=== PATIENT | male | born 1935 | race Two or more races ===

== ENCOUNTER 2023-07-31 16:48 | Emergency (ER) | payer MEDICARE, BC ==
[~2023-07-31] VITALS: Ht 175.3 cm; Wt 56.0 kg
[2023-07-31 18:17] LABS: Basophils # (auto) 0 10 ^3/uL (0-0.2); Basophils % (auto) 0.4 % (0.0-2.0); Eosinophils # (auto) 0.3 10 ^3/uL (0-0.8); Eosinophils % (auto) 2.6 % (0.0-7.0); Hematocrit 40.2 % (41.0-53.0); Hemoglobin 13.3 g/dL (13.5-17.5); Lymphocytes # (auto) 1.4 10 ^3/uL (0.4-5.4); Mean Corpuscular Hemoglobin 29.6 pg (28.0-32.0); Mean Corpuscular Hgb Conc. 33.1 g/dL (32.0-36.0); Mean Corpuscular Volume 89.3 fL (80.0-100.0); Monocytes # (auto) 0.8 10 ^3/uL (0-1.3); Neutrophils # (auto) 7.9 10 ^3/uL (1.6-8.6); Nucleated Red Blood Cells % 0.1 %; Red Cell Distribution Width 15.4 % (11.8-14.3); White Blood Cell 10.4 10^3/uL (4.4-10.8)
[2023-07-31 18:37] LABS: Alanine Aminotransferase 20 U/L (7-40); Alkaline Phosphatase 185 U/L (46-116); Anion Gap 8 (5-15); Aspartate Aminotransferase 21 U/L (13-40); BUN/Creatinine Ratio 22.5 (10.0-20.0); Bilirubin, Total 1.4 mg/dL (0.2-1.0); Blood Urea Nitrogen 20 mg/dL (9-23); Calcium 8.9 mg/dL (8.7-10.4); Carbon Dioxide 25 mmol/L (20-30); Chloride 104 mmol/L (98-107); Glucose 92 mg/dL (74-106); Potassium 4.5 mmol/L (3.5-5.1); Sodium 137 mmol/L (136-145); Total Protein 7.4 g/dL (5.7-8.2)
[2023-07-31 21:20] VITALS: PULSE 61; RESP 18; O2SAT 97
[2023-07-31 21:24] VITALS: BP 119/69; PULSE 61; RESP 18; TEMP 98.2; O2SAT 97
== END 2023-07-31 21:27 | disposition home or self-care (01) ==
LOC: ER 16:48
DX: S70.01XA Contusion of right hip, initial encounter (principal); S09.90XA Unspecified injury of head, initial encounter; Z98.890 Other specified postprocedural states; W18.09XA Striking against other object with subsequent fall, initial encounter; Y93.89 Activity, other specified; Y92.89 Other specified places as the place of occurrence of the external cause; Y99.8 Other external cause status
CPT/HCPCS: 36415; 70450; 71045; 72125; 73080; 73502; 80053; 82962; 83880; 84484; 85025; 93005

== ENCOUNTER 2024-02-18 10:57 | Inpatient (IN) | payer BC, MEDICARE, OTHER ==
[~2024-02-18] VITALS: Ht 177.8 cm; Wt 61.2 kg
[~2024-02-18 10:57] MED LIST: LEFL20TA PO; PRED20TA2 PO
[2024-02-18 11:45] VITALS: PULSE 101; RESP 12; O2SAT 94
[2024-02-18] MEDS: SODIUM CHLORIDE 0.9% 1,000 ML IV ONE ×3 (11:45→11:58)
[2024-02-18] MEDS: PIPERACILLIN-TAZOB 3.375GM 100 ML IV ONE (11:59)
[2024-02-18 12:03] LABS: Basophils # (auto) 0 10 ^3/uL (0-0.2); Eosinophils # (auto) 0.1 10 ^3/uL (0-0.8); Monocytes # (auto) 0.4 10 ^3/uL (0-1.3); Nucleated Red Blood Cells % 0.1 %
[2024-02-18 12:05] LABS: Basophils % (auto) 0.4 % (0.0-2.0); Eosinophils % (auto) 0.6 % (0.0-7.0); Hematocrit 43.9 % (41.0-53.0); Hemoglobin 13.7 g/dL (13.5-17.5); Lymphocytes # (auto) 1.8 10 ^3/uL (0.4-5.4); Lymphocytes % (auto) 20.9 % (10.0-50.0); Mean Corpuscular Hgb Conc. 31.2 g/dL (32.0-36.0); Monocytes % (auto) 4.3 % (0.0-12.0); Neutrophils # (auto) 6.5 10 ^3/uL (1.6-8.6); Neutrophils % (auto) 73.8 % (37.0-80.0); Red Blood Cells 4.72 10^6/uL (4.5-5.90); Red Cell Distribution Width 21.3 % (11.8-14.3); White Blood Cell 8.8 10^3/uL (4.4-10.8)
[2024-02-18 12:20] LABS: INR 1.19 (0.9-1.15); Partial Thromboplastin Time 27.6 SEC (24.5-34.5); Prothrombin Time 12.5 sec (9.3-11.8)
[2024-02-18 12:28] LABS: Alanine Aminotransferase 37 U/L (7-40); Albumin 2.9 g/dL (3.2-4.8); Alkaline Phosphatase 145 U/L (46-116); Anion Gap 8 (5-15); Aspartate Aminotransferase 51 U/L (13-40); BUN/Creatinine Ratio 29.9 (10.0-20.0); Bilirubin, Total 1.1 mg/dL (0.2-1.0); Blood Alcohol < 3.0 mg/dL (<10); Blood Urea Nitrogen 29 mg/dL (9-23); Calcium 8.5 mg/dL (8.5-10.1); Carbon Dioxide 25 mmol/L (20-30); Chloride 117 mmol/L (98-107); Glucose 90 mg/dL (74-106); Potassium 4.4 mmol/L (3.5-5.1); Sodium 150 mmol/L (136-145); Total Protein 5.9 g/dL (5.7-8.2)
[2024-02-18 12:36] LABS: Lactic Acid w/Reflex 2.1 mmol/L (0.4-2.0)
[2024-02-18] MEDS ORDERED: MORPHINE SULFATE INJ 2 MG/ml SYRG IV PRN ×2 (14:15)
[2024-02-18] MEDS ORDERED: DOCUSATE SOD 100 MG CAP PO PRN (14:15)
[2024-02-18] MEDS ORDERED: ACETAMINOPHEN 325 MG TAB PO PRN (14:15)
[2024-02-18] MEDS ORDERED: NITROGLYCERIN 0.4 MG SL TAB SL PRN (14:15)
[2024-02-18] MEDS ORDERED: HYDROcodone-ACET 5/325MG TAB PO PRN (14:15)
[2024-02-18] MEDS ORDERED: ONDANSETRON HCL 4 MG/2 ML VIAL IV PRN (14:15)
[2024-02-18 14:43] LABS: Base Excess 2.5 mmol/L (-2.0-2.0)
[2024-02-18] MEDS: FUROSEMIDE 40 MG/4 ML VIAL IV ONE (14:45)
[2024-02-18 15:16] LABS: Magnesium 2.1 mg/dL (1.6-2.6)
[2024-02-18] MEDS ORDERED: ROSU5TAB24 PO (15:17)
[2024-02-18] MEDS ORDERED: METO25TA93 PO (15:17)
[2024-02-18] MEDS ORDERED: DONE1TAB88 PO (15:17)
[2024-02-18] MEDS ORDERED: LOS25T PO (15:17)
[2024-02-18] MEDS ORDERED: CLOP75TA70 PO (15:17)
[2024-02-18 15:18] LABS: Phosphorus 3.1 mg/dL (2.4-5.1)
[2024-02-18] MEDS: AZITHROMYCIN 500MG/ 250ML 250 ML IV ONE (15:43)
[2024-02-18] MEDS: ALBUMIN 5% 250 ML IV ONE (15:44)
[2024-02-18] MEDS: LINEZOLID 600MG/300ML 300 ML IV SCH (18:00)
[2024-02-18 19:07] LABS: Urine Bacteria None Seen /hpf (None Seen)
[2024-02-18 19:27] LABS: Urine Blood Negative /uL (Negative); Urine Clarity Ex.Turbid (Clear); Urine Color Yellow (Yellow); Urine Mucus FEW (None Seen); Urine Protein, UAD 1+ (Negative); Urine Specific Gravity 1.025 (1.001-1.035); Urine Urobilinogen Normal (Negative); Urine WBC 5 /hpf (0 - 3); Urine pH 5.5 (5.0-9.0)
[2024-02-18] MEDS: CEFEPIME 1GM/ 50ML 50 ML IV SCH (22:33)
[2024-02-18] MEDS: DONEPEZIL HYDROCHLORIDE 5 MG TAB PO SCH (22:33)
[2024-02-18 22:50] VITALS: O2SAT 96
[2024-02-19] VITALS (12 sets, daily range): BP systolic 97–122; BP diastolic 46–79; PULSE 47–99; RESP 14–18; TEMP 95.9–98.3; O2SAT 90–100
[2024-02-19 03:22] LABS: COVID19 ANTIGEN SOFIA FIA NEGATIVE (NEGATIVE)
[2024-02-19 03:24] LABS: Rapid Influenza A Positive (Negative); Rapid Influenza B Positive (Negative)
[2024-02-19 06:27] LABS: Basophils # (auto) 0 10 ^3/uL (0-0.2); Basophils % (auto) 0.4 % (0.0-2.0); Eosinophils # (auto) 0.5 10 ^3/uL (0-0.8); Eosinophils % (auto) 6.3 % (0.0-7.0); Hematocrit 42.5 % (41.0-53.0); Hemoglobin 13.5 g/dL (13.5-17.5); Lymphocytes # (auto) 1.1 10 ^3/uL (0.4-5.4); Lymphocytes % (auto) 12.7 % (10.0-50.0); Mean Corpuscular Hemoglobin 29.2 pg (28.0-32.0); Mean Corpuscular Hgb Conc. 31.8 g/dL (32.0-36.0); Mean Corpuscular Volume 91.9 fL (80.0-100.0); Monocytes # (auto) 0.5 10 ^3/uL (0-1.3); Monocytes % (auto) 5.9 % (0.0-12.0); Neutrophils # (auto) 6.4 10 ^3/uL (1.6-8.6); Neutrophils % (auto) 74.7 % (37.0-80.0); Red Blood Cells 4.63 10^6/uL (4.5-5.90); Red Cell Distribution Width 20.4 % (11.8-14.3); White Blood Cell 8.6 10^3/uL (4.4-10.8)
[2024-02-19 06:29] LABS: Alanine Aminotransferase 30 U/L (7-40); Albumin 2.7 g/dL (3.2-4.8); Alkaline Phosphatase 128 U/L (46-116); Anion Gap 8 (5-15); Aspartate Aminotransferase 33 U/L (13-40); BUN/Creatinine Ratio 30.5 (10.0-20.0); Blood Urea Nitrogen 25 mg/dL (9-23); Calcium 8.2 mg/dL (8.7-10.4); Carbon Dioxide 26 mmol/L (20-30); Chloride 117 mmol/L (98-107); Glucose 131 mg/dL (74-106); Potassium 3.6 mmol/L (3.5-5.1); Sodium 151 mmol/L (136-145); Total Protein 5.9 g/dL (5.7-8.2)
[2024-02-19] MEDS ORDERED: cefTRIAXone 1GM/50ML D5W 50 ML IV SCH (09:00)
[2024-02-19] MEDS: ENOXAPARIN SOD 30 MG/0.3 ML SYRINGE SC SCH (09:33)
[2024-02-19] MEDS: ATORVASTATIN 20 MG TAB PO SCH (09:33)
[2024-02-19] MEDS ORDERED: AZITHROMYCIN 500MG/ 250ML 250 ML IV SCH (10:00)
[2024-02-19] MEDS: PANTOPRAZOLE 40 MG/10 ML VIAL INJ IV SCH (12:21)
[2024-02-19] MEDS: ASPirin 81 mg TAB PO ONE (12:45)
[2024-02-19] MEDS: SOD CHL 0.45% 1,000 ML IV SCH (15:00)
[2024-02-19] MEDS ORDERED: HYDR200T36 PO (15:42)
[2024-02-19] MEDS ORDERED: CLOB0.055 TOP (15:42)
[2024-02-19] MEDS ORDERED: IPRIH INH (15:42)
[2024-02-19] MEDS ORDERED: ALEN70TA74 PO (15:42)
[2024-02-19] MEDS ORDERED: PER60TP EX (15:42)
[2024-02-19] MEDS ORDERED: ISOS1TAB28 PO (15:42)
[2024-02-19] MEDS ORDERED: MUPI2OIN2 TOP (15:42)
[2024-02-19] MEDS ORDERED: TRI05TP TOP (15:42)
[2024-02-19] MEDS: FUROSEMIDE 40 MG/4 ML VIAL IV ONE (16:25)
[2024-02-20] VITALS (11 sets, daily range): BP systolic 102–112; BP diastolic 41–67; PULSE 56–101; RESP 14–20; TEMP 97.5–98.3; O2SAT 93–98
[2024-02-20 09:18] LABS: Basophils # (auto) 0 10 ^3/uL (0-0.2); Basophils % (auto) 0.5 % (0.0-2.0); Eosinophils % (auto) 11.6 % (0.0-7.0); Hematocrit 46.9 % (41.0-53.0); Hemoglobin 14.6 g/dL (13.5-17.5); Lymphocytes # (auto) 1.1 10 ^3/uL (0.4-5.4); Lymphocytes % (auto) 12.3 % (10.0-50.0); Mean Corpuscular Hemoglobin 29.3 pg (28.0-32.0); Mean Corpuscular Hgb Conc. 31.2 g/dL (32.0-36.0); Mean Corpuscular Volume 93.8 fL (80.0-100.0); Monocytes # (auto) 0.4 10 ^3/uL (0-1.3); Monocytes % (auto) 5.1 % (0.0-12.0); Neutrophils # (auto) 6.1 10 ^3/uL (1.6-8.6); Neutrophils % (auto) 70.5 % (37.0-80.0); Nucleated Red Blood Cells % 0.2 %; White Blood Cell 8.7 10^3/uL (4.4-10.8)
[2024-02-20 09:19] LABS: Red Cell Distribution Width 20.5 % (11.8-14.3)
[2024-02-20 09:34] LABS: Alanine Aminotransferase 30 U/L (7-40); Albumin 3.1 g/dL (3.2-4.8); Alkaline Phosphatase 174 U/L (46-116); Anion Gap 12 (5-15); Aspartate Aminotransferase 39 U/L (13-40); BUN/Creatinine Ratio 19.8 (10.0-20.0); Blood Urea Nitrogen 22 mg/dL (9-23); Calcium 8.9 mg/dL (8.5-10.1); Carbon Dioxide 24 mmol/L (20-30); Chloride 117 mmol/L (98-107); Glucose 97 mg/dL (74-106); Magnesium 2.2 mg/dL (1.6-2.6); Potassium 3.7 mmol/L (3.5-5.1); Sodium 153 mmol/L (136-145)
[2024-02-20 09:35] LABS: Bilirubin, Total 0.7 mg/dL (0.2-1.0); Total Protein 6.6 g/dL (5.7-8.2)
[2024-02-20] MEDS: ASPirin 81 mg TAB PO SCH (10:01)
[2024-02-20] MEDS: ALBUTEROL SULF 2.5 MG/0.5ML(0.5%) NEB SOLN NEB PRN (12:22)
[2024-02-20] MEDS: IPRATROPIUM BROM 0.5 MG/2.5ML INH SOL NEB PRN (12:22)
[2024-02-20] MEDS: SOD CHL 0.45% 1,000 ML IV SCH (16:29)
[2024-02-20] MEDS ORDERED: MORPHINE SULFATE 4 MG/ML SYR/VIAL IV PRN ×2 (21:30)
[2024-02-21] VITALS (12 sets, daily range): BP systolic 79–106; BP diastolic 56–72; PULSE 55–118; RESP 14–19; TEMP 97.5–98.7; O2SAT 89–100
[2024-02-21 06:13] LABS: Chloride 118 mmol/L (98-107); Sodium 155 mmol/L (136-145)
[2024-02-21 06:14] LABS: Anion Gap 13 (5-15); Calcium 8.9 mg/dL (8.5-10.1); Carbon Dioxide 24 mmol/L (20-30)
[2024-02-21 06:19] LABS: BUN/Creatinine Ratio 17.9 (10.0-20.0); Blood Urea Nitrogen 26 mg/dL (9-23); Glucose 123 mg/dL (74-106)
[2024-02-21 06:20] LABS: Magnesium 2.5 mg/dL (1.6-2.6)
[2024-02-21] MEDS: D5W 5% 1,000 ML IV SCH (14:02)
[2024-02-21] MEDS: MEROPENEM 1GM IVPB 50 ML IV ONE (14:02)
[2024-02-21] MEDS: MEROPENEM 1GM IVPB 50 ML IV SCH (21:48)
[2024-02-22] VITALS (12 sets, daily range): BP systolic 98–123; BP diastolic 46–74; PULSE 50–124; RESP 17–21; TEMP 97.2–97.8; O2SAT 91–99
[2024-02-22 06:24] LABS: Basophils # (auto) 0 10 ^3/uL (0-0.2); Basophils % (auto) 0.3 % (0.0-2.0); Eosinophils # (auto) 0.7 10 ^3/uL (0-0.8); Eosinophils % (auto) 5.6 % (0.0-7.0); Hematocrit 43.6 % (41.0-53.0); Hemoglobin 13.5 g/dL (13.5-17.5); Lymphocytes # (auto) 0.7 10 ^3/uL (0.4-5.4); Lymphocytes % (auto) 5.3 % (10.0-50.0); Mean Corpuscular Hemoglobin 28.6 pg (28.0-32.0); Mean Corpuscular Volume 92.3 fL (80.0-100.0); Monocytes # (auto) 0.4 10 ^3/uL (0-1.3); Monocytes % (auto) 2.9 % (0.0-12.0); Neutrophils # (auto) 10.7 10 ^3/uL (1.6-8.6); Neutrophils % (auto) 85.9 % (37.0-80.0); Nucleated Red Blood Cells % 0.1 %; Red Blood Cells 4.72 10^6/uL (4.5-5.90); Red Cell Distribution Width 20.1 % (11.8-14.3); White Blood Cell 12.4 10^3/uL (4.4-10.8)
[2024-02-22 06:38] LABS: Anion Gap 8 (5-15); Carbon Dioxide 28 mmol/L (20-30); Chloride 118 mmol/L (98-107); Potassium 3.9 mmol/L (3.5-5.1); Sodium 154 mmol/L (136-145)
[2024-02-22 06:39] LABS: Calcium 8.5 mg/dL (8.7-10.4)
[2024-02-22 06:44] LABS: BUN/Creatinine Ratio 20.5 (10.0-20.0); Blood Urea Nitrogen 33 mg/dL (9-23); Glucose 144 mg/dL (74-106)
[2024-02-22 06:45] LABS: Magnesium 2.3 mg/dL (1.6-2.6)
[2024-02-22 07:51] LABS: Platelet Estimate Adequate
[2024-02-22 07:52] LABS: Ovalocytes FEW
[2024-02-22] MEDS: D5W 5% 1,000 ML IV SCH ×2 (11:20→11:30)
[2024-02-22] MEDS: DOPamine 1600MCG/ML D5W 250 ML IV SCH (13:36)
[2024-02-22 15:33] LABS: Urine Bacteria FEW /hpf (None Seen); Urine Blood 2+ /uL (Negative); Urine Clarity Turbid (Clear); Urine Color Yellow (Yellow); Urine Hyaline Cast MOD /lpf (0 - 2); Urine Mucus FEW (None Seen); Urine Protein, UAD 1+ (Negative); Urine Specific Gravity 1.028 (1.001-1.035); Urine Urobilinogen Normal (Negative); Urine WBC 17 /hpf (0 - 3)
[2024-02-22 15:39] LABS: Protein, Urine 102.3 mg/dL (0.0-11.9)
[2024-02-22 15:41] LABS: Creatinine, Urine 112.98 mg/dL (30.0-125.0)
[2024-02-23] VITALS (9 sets, daily range): BP systolic 94–131; BP diastolic 52–65; PULSE 83–165; RESP 18–21; TEMP 97–98.7; O2SAT 91–96
[2024-02-23 06:30] LABS: Eosinophils # (auto) 1.1 10 ^3/uL (0-0.8); Nucleated Red Blood Cells % 0.3 %
[2024-02-23 06:32] LABS: Basophils # (auto) 0.1 10 ^3/uL (0-0.2); Basophils % (auto) 0.4 % (0.0-2.0); Eosinophils % (auto) 7.8 % (0.0-7.0); Hematocrit 50.5 % (41.0-53.0); Hemoglobin 15.3 g/dL (13.5-17.5); Lymphocytes # (auto) 1.1 10 ^3/uL (0.4-5.4); Mean Corpuscular Hemoglobin 29.4 pg (28.0-32.0); Mean Corpuscular Hgb Conc. 30.4 g/dL (32.0-36.0); Mean Corpuscular Volume 96.8 fL (80.0-100.0); Monocytes # (auto) 0.4 10 ^3/uL (0-1.3); Monocytes % (auto) 2.7 % (0.0-12.0); Neutrophils # (auto) 11.1 10 ^3/uL (1.6-8.6); Neutrophils % (auto) 81.1 % (37.0-80.0); Red Blood Cells 5.21 10^6/uL (4.5-5.90); Red Cell Distribution Width 21.7 % (11.8-14.3); White Blood Cell 13.6 10^3/uL (4.4-10.8)
[2024-02-23 06:51] LABS: Chloride 120 mmol/L (98-107); Sodium 152 mmol/L (136-145)
[2024-02-23 06:52] LABS: Anion Gap 11 (5-15); Carbon Dioxide 21 mmol/L (20-30)
[2024-02-23 06:53] LABS: Calcium 8.6 mg/dL (8.5-10.1)
[2024-02-23 06:58] LABS: Glucose 54 mg/dL (74-106); Magnesium 2.7 mg/dL (1.6-2.6)
[2024-02-23 07:01] LABS: BUN/Creatinine Ratio 14.8 (10.0-20.0); Blood Urea Nitrogen 25 mg/dL (9-23); Potassium 4.9 mmol/L (3.5-5.1)
[2024-02-23 10:16] LABS: Base Excess 0.8 mmol/L (-2.0-2.0)
[2024-02-23] MEDS: D5W 5% 1,000 ML IV SCH (12:14)
[2024-02-23] MEDS: DIGOXIN (250MCG/ML) 2 ML AMPULE IV ONE (13:36)
[2024-02-23] MEDS: Glucerna Carbsteady SHAKE Stawberry 8oz PO SCH (14:55)
[2024-02-23] MEDS: NYSTATIN (MOUTH-THROAT) 500,000 UNITS/5 ML SUSP MT SCH (18:32)
[2024-02-23] MEDS: MEROPENEM 500MG IVPB 50 ML IV SCH (22:11)
[2024-02-24] VITALS (9 sets, daily range): BP systolic 113–153; BP diastolic 59–98; PULSE 95–128; RESP 20–21; TEMP 97; O2SAT 92–99
[2024-02-24 06:23] LABS: Basophils # (auto) 0 10 ^3/uL (0-0.2); Basophils % (auto) 0.2 % (0.0-2.0); Eosinophils # (auto) 1.5 10 ^3/uL (0-0.8); Eosinophils % (auto) 11.5 % (0.0-7.0); Hematocrit 48.5 % (41.0-53.0); Lymphocytes # (auto) 2.1 10 ^3/uL (0.4-5.4); Lymphocytes % (auto) 16.1 % (10.0-50.0); Mean Corpuscular Hemoglobin 29.1 pg (28.0-32.0); Monocytes # (auto) 0.3 10 ^3/uL (0-1.3); Monocytes % (auto) 2.4 % (0.0-12.0); Neutrophils # (auto) 9.3 10 ^3/uL (1.6-8.6); Neutrophils % (auto) 69.8 % (37.0-80.0); Nucleated Red Blood Cells % 0.3 %; Red Blood Cells 5.16 10^6/uL (4.5-5.90); Red Cell Distribution Width 19.8 % (11.8-14.3); White Blood Cell 13.4 10^3/uL (4.4-10.8)
[2024-02-24 06:59] LABS: Alanine Aminotransferase 24 U/L (7-40); Albumin 2.5 g/dL (3.2-4.8); Alkaline Phosphatase 165 U/L (46-116); Anion Gap 9 (5-15); Aspartate Aminotransferase 34 U/L (13-40); BUN/Creatinine Ratio 19.7 (10.0-20.0); Blood Urea Nitrogen 31 mg/dL (9-23); Calcium 8.7 mg/dL (8.7-10.4); Carbon Dioxide 26 mmol/L (20-30); Chloride 122 mmol/L (98-107); Glucose 74 mg/dL (74-106); Magnesium 2.5 mg/dL (1.6-2.6); Potassium 4.3 mmol/L (3.5-5.1)
[2024-02-24 07:00] LABS: Bilirubin, Total 0.6 mg/dL (0.2-1.0); Sodium 157 mmol/L (136-145); Total Protein 6.1 g/dL (5.7-8.2)
[2024-02-24] MEDS: DIGOXIN 0.125 MG TAB PO SCH (10:18)
[2024-02-24] MEDS: FREE WATER GT SCH (12:36)
[2024-02-24] MEDS: ALBUMIN 25% 100 ML IV SCH (12:52)
[2024-02-24] MEDS: FLUCONAZOLE 200MG/100ML 100 ML IV SCH ×2 (12:52→18:52)
[2024-02-25] VITALS (17 sets, daily range): BP systolic 92–117; BP diastolic 56–75; PULSE 75–113; RESP 18–28; TEMP 93.8–98.6; O2SAT 90–100
[2024-02-25 06:16] LABS: Anion Gap 8 (5-15); Carbon Dioxide 26 mmol/L (20-30); Chloride 124 mmol/L (98-107); Potassium 3.7 mmol/L (3.5-5.1); Sodium 158 mmol/L (136-145)
[2024-02-25 06:18] LABS: Calcium 8.8 mg/dL (8.7-10.4)
[2024-02-25 06:22] LABS: BUN/Creatinine Ratio 21.6 (10.0-20.0); Blood Urea Nitrogen 30 mg/dL (9-23); Glucose 110 mg/dL (74-106)
[2024-02-25 06:38] LABS: Magnesium 2.5 mg/dL (1.6-2.6)
[2024-02-25] MEDS: FLUCONAZOLE 200MG/100ML 100 ML IV SCH (10:50)
[2024-02-25] MEDS: ALBUTEROL SULF 2.5 MG/0.5ML(0.5%) NEB SOLN NEB SCH (11:55)
[2024-02-25] MEDS: IPRATROPIUM BROM 0.5 MG/2.5ML INH SOL NEB SCH (11:55)
[2024-02-26] VITALS (16 sets, daily range): BP systolic 94–120; BP diastolic 40–53; PULSE 50–87; RESP 12–20; TEMP 95.9–97.7; O2SAT 93–100
[2024-02-26 06:10] LABS: Hematocrit 41.1 % (41.0-53.0); Hemoglobin 12.7 g/dL (13.5-17.5); Mean Corpuscular Hemoglobin 28.8 pg (28.0-32.0); Mean Corpuscular Volume 92.9 fL (80.0-100.0); Red Blood Cells 4.42 10^6/uL (4.5-5.90); Red Cell Distribution Width 19.9 % (11.8-14.3); White Blood Cell 11.7 10^3/uL (4.4-10.8)
[2024-02-26 06:26] LABS: Chloride 121 mmol/L (98-107); Potassium 3.8 mmol/L (3.5-5.1); Sodium 155 mmol/L (136-145)
[2024-02-26 06:27] LABS: Anion Gap 8 (5-15); Band Neutrophils % (manual) 0; Basophils % (manual) 0 (0.0-2.0); Blast Cells 0; Calcium 8.6 mg/dL (8.5-10.1); Carbon Dioxide 26 mmol/L (20-30); Metamyelocytes % 0; Myelocytes % 0; Promyelocytes % 0; Reactive Lymphocytes 0
[2024-02-26 06:32] LABS: BUN/Creatinine Ratio 19.2 (10.0-20.0); Blood Urea Nitrogen 24 mg/dL (9-23); Glucose 104 mg/dL (74-106)
[2024-02-26 06:33] LABS: Magnesium 2.1 mg/dL (1.6-2.6)
[2024-02-26 08:55] LABS: Eosinophils % (manual) 19 (0-7); Lymphocytes % (manual) 10 (10.0-50.0); Monocytes % (manual) 1 (0-12); Platelet Estimate Adequate
[2024-02-26] MEDS: ALBUTEROL SULF 2.5 MG/0.5ML(0.5%) NEB SOLN NEB SCH (11:51)
[2024-02-26] MEDS: IPRATROPIUM BROM 0.5 MG/2.5ML INH SOL NEB SCH (11:52)
[2024-02-27] VITALS (18 sets, daily range): BP systolic 99–124; BP diastolic 50–77; PULSE 71–92; RESP 14–22; TEMP 93.1–97.6; O2SAT 93–100
[2024-02-27 07:12] LABS: Chloride 120 mmol/L (98-107); Potassium 3.9 mmol/L (3.5-5.1); Sodium 154 mmol/L (136-145)
[2024-02-27 07:13] LABS: Anion Gap 6 (5-15); Calcium 8.6 mg/dL (8.5-10.1); Carbon Dioxide 28 mmol/L (20-30); Hematocrit 40.8 % (41.0-53.0); Hemoglobin 13.2 g/dL (13.5-17.5); Mean Corpuscular Hemoglobin 29.6 pg (28.0-32.0); Mean Corpuscular Hgb Conc. 32.4 g/dL (32.0-36.0); Mean Corpuscular Volume 91.6 fL (80.0-100.0); Red Blood Cells 4.46 10^6/uL (4.5-5.90); Red Cell Distribution Width 19.8 % (11.8-14.3); White Blood Cell 10.6 10^3/uL (4.4-10.8)
[2024-02-27 07:18] LABS: BUN/Creatinine Ratio 21.4 (10.0-20.0); Blood Urea Nitrogen 24 mg/dL (9-23); Glucose 70 mg/dL (74-106)
[2024-02-27 07:28] LABS: Band Neutrophils % (manual) 0; Basophils % (manual) 0 (0.0-2.0); Blast Cells 0; Metamyelocytes % 0; Myelocytes % 0; Promyelocytes % 0; Reactive Lymphocytes 0
[2024-02-27 08:23] LABS: Eosinophils % (manual) 27 (0-7); Lymphocytes % (manual) 7 (10.0-50.0); Monocytes % (manual) 4 (0-12); Platelet Estimate Decreased
[2024-02-27] MEDS: D5W 5% 1,000 ML IV SCH (14:30)
[2024-02-28] VITALS (18 sets, daily range): BP systolic 95–113; BP diastolic 55–66; PULSE 18–94; RESP 15–24; TEMP 93.5–95; O2SAT 95–100
[2024-02-28 06:26] LABS: Anion Gap 9 (5-15); Carbon Dioxide 28 mmol/L (20-30); Chloride 118 mmol/L (98-107); Potassium 4.3 mmol/L (3.5-5.1); Sodium 155 mmol/L (136-145)
[2024-02-28 06:27] LABS: Calcium 8.9 mg/dL (8.7-10.4)
[2024-02-28 06:32] LABS: BUN/Creatinine Ratio 22.4 (10.0-20.0); Blood Urea Nitrogen 26 mg/dL (9-23); Glucose 148 mg/dL (74-106); Magnesium 2.2 mg/dL (1.6-2.6)
[2024-02-29] VITALS (16 sets, daily range): BP systolic 96–127; BP diastolic 49–73; PULSE 57–76; RESP 16–22; TEMP 92.2–94.8; O2SAT 91–100
[2024-02-29 07:27] LABS: Basophils # (auto) 0 10 ^3/uL (0-0.2); Basophils % (auto) 0.2 % (0.0-2.0); Eosinophils # (auto) 0 10 ^3/uL (0-0.8); Eosinophils % (auto) 0.5 % (0.0-7.0); Hematocrit 44.9 % (41.0-53.0); Hemoglobin 12.8 g/dL (13.5-17.5); Lymphocytes # (auto) 0.8 10 ^3/uL (0.4-5.4); Lymphocytes % (auto) 7.2 % (10.0-50.0); Mean Corpuscular Hemoglobin 29.1 pg (28.0-32.0); Mean Corpuscular Hgb Conc. 28.6 g/dL (32.0-36.0); Mean Corpuscular Volume 101.9 fL (80.0-100.0); Monocytes # (auto) 0.3 10 ^3/uL (0-1.3); Monocytes % (auto) 2.4 % (0.0-12.0); Neutrophils # (auto) 9.6 10 ^3/uL (1.6-8.6); Neutrophils % (auto) 89.7 % (37.0-80.0); Nucleated Red Blood Cells % 0.2 %; Red Blood Cells 4.41 10^6/uL (4.5-5.90); Red Cell Distribution Width 21.3 % (11.8-14.3); White Blood Cell 10.7 10^3/uL (4.4-10.8)
[2024-02-29 07:38] LABS: Alanine Aminotransferase 25 U/L (7-40); Albumin 2.9 g/dL (3.2-4.8); Alkaline Phosphatase 129 U/L (46-116); Anion Gap 9 (5-15); Aspartate Aminotransferase 24 U/L (13-40); BUN/Creatinine Ratio 21.7 (10.0-20.0); Bilirubin, Total 0.5 mg/dL (0.2-1.0); Blood Urea Nitrogen 26 mg/dL (9-23); Calcium 8.9 mg/dL (8.7-10.4); Carbon Dioxide 23 mmol/L (20-30); Chloride 118 mmol/L (98-107); Glucose 148 mg/dL (74-106); Magnesium 2.2 mg/dL (1.6-2.6); Potassium 4.2 mmol/L (3.5-5.1)
[2024-02-29 07:41] LABS: Sodium 150 mmol/L (136-145)
[2024-02-29] MEDS ORDERED: ACETAMINOPHEN 650 mg PER 20.3 mL UD NG PRN (16:15)
[2024-02-29] MEDS ORDERED: DOCUSATE ORAL LIQUID 100 MG/10 ML UD NG PRN (16:30)
[2024-02-29] MEDS: DONEPEZIL HYDROCHLORIDE 5 MG TAB NG SCH (22:19)
[2024-03-01] VITALS (16 sets, daily range): BP systolic 102–114; BP diastolic 48–68; PULSE 65–86; RESP 16–20; TEMP 88–97; O2SAT 91–100
[2024-03-01 06:17] LABS: Urine Bacteria None Seen /hpf (None Seen)
[2024-03-01 06:33] LABS: Alanine Aminotransferase 24 U/L (7-40); Albumin 2.8 g/dL (3.2-4.8); Alkaline Phosphatase 128 U/L (46-116); Anion Gap 9 (5-15); Aspartate Aminotransferase 23 U/L (13-40); BUN/Creatinine Ratio 21.1 (10.0-20.0); Blood Urea Nitrogen 26 mg/dL (9-23); Calcium 8.6 mg/dL (8.5-10.1); Carbon Dioxide 24 mmol/L (20-30); Chloride 117 mmol/L (98-107); Glucose 115 mg/dL (74-106); Potassium 4.4 mmol/L (3.5-5.1); Sodium 150 mmol/L (136-145)
[2024-03-01 06:34] LABS: Bilirubin, Total 0.5 mg/dL (0.2-1.0); Total Protein 5.7 g/dL (5.7-8.2)
[2024-03-01 06:43] LABS: Urine Blood 3+ /uL (Negative); Urine Clarity Turbid (Clear); Urine Color Yellow (Yellow); Urine Hyaline Cast FEW /lpf (0 - 2); Urine Mucus FEW (None Seen); Urine Protein, UAD 1+ (Negative); Urine Specific Gravity 1.022 (1.001-1.035); Urine Urobilinogen Normal (Negative); Urine WBC 31 /hpf (0 - 3); Urine pH 5.5 (5.0-9.0)
[2024-03-01] MEDS: ASPirin 81 mg TAB NG SCH (10:00)
[2024-03-01] MEDS: ATORVASTATIN 20 MG TAB NG SCH (10:00)
[2024-03-01] MEDS: DIGOXIN 0.125 MG TAB NG SCH (10:00)
[2024-03-01] MEDS: D5W 5% 1,000 ML IV SCH (10:28)
[2024-03-02 00:11] VITALS: PULSE 81; RESP 18; O2SAT 95
[2024-03-02 00:21] VITALS: PULSE 86; RESP 18; O2SAT 97
[2024-03-02 01:00] VITALS: BP 133/77; PULSE 87; RESP 20; TEMP 97.8; O2SAT 95
[2024-03-02 05:13] VITALS: BP 114/70; PULSE 91; RESP 20; TEMP 98; O2SAT 94
[2024-03-02] MEDS ORDERED: SODIUM BICARB 8.4% 50Meq/50ml SYR Vial IV ONE (06:26)
[2024-03-02] MEDS ORDERED: EPINEPHrine HCL 250 ML IV ONE (06:44)
[2024-03-02] MEDS ORDERED: EPINEPHrine HCL 1 MG/10 ML SYRG IV ONE (12:33)
== END 2024-03-02 15:10 | DRG 871 ==
LOC: ER 10:57 → EDBD 10:57 → TELE 14:22 → TELE-WESTW 22:53 → TELE-EAST 02-20 01:46 → ICU WEST 03-02 06:39
PROVIDERS: ADMIT Nurse Practitioner Family; ATTEND Internal Medicine
PROC: 05H933Z Insertion of Infusion Device into Right Brachial Vein, Percutaneous Approach (ICD-10-PCS; 2024-02-18)
PROC: B54MZZA Ultrasonography of Right Upper Extremity Veins, Guidance (ICD-10-PCS; 2024-02-18)
PROC: 05H933Z Insertion of Infusion Device into Right Brachial Vein, Percutaneous Approach (ICD-10-PCS; 2024-02-24)
PROC: B54MZZA Ultrasonography of Right Upper Extremity Veins, Guidance (ICD-10-PCS; 2024-02-24)
PROC: 0DH67UZ Insertion of Feeding Device into Stomach, Via Natural or Artificial Opening (ICD-10-PCS; 2024-02-29)
PROC: 5A12012 Performance of Cardiac Output, Single, Manual (ICD-10-PCS; principal; 2024-03-02)
PROC: 5A2204Z Restoration of Cardiac Rhythm, Single (ICD-10-PCS; 2024-03-02)
DX: A41.59 Other Gram-negative sepsis (principal); E43 Unspecified severe protein-calorie malnutrition; G93.41 Metabolic encephalopathy; I21.A1 Myocardial infarction type 2; I50.43 Acute on chronic combined systolic (congestive) and diastolic (congestive) heart failure; J12.9 Viral pneumonia, unspecified; J10.08 Influenza due to other identified influenza virus with other specified pneumonia; J96.00 Acute respiratory failure, unspecified whether with hypoxia or hypercapnia; E87.0 Hyperosmolality and hypernatremia; E87.20 Acidosis, unspecified; E87.1 Hypo-osmolality and hyponatremia; B37.0 Candidal stomatitis; I13.0 Hypertensive heart and chronic kidney disease with heart failure and stage 1 through stage 4 chronic kidney disease, or unspecified chronic kidney disease; N17.9 Acute kidney failure, unspecified; N39.0 Urinary tract infection, site not specified; J90 Pleural effusion, not elsewhere classified; Z68.1 Body mass index [BMI] 19.9 or less, adult; E78.5 Hyperlipidemia, unspecified; I25.10 Atherosclerotic heart disease of native coronary artery without angina pectoris; M06.9 Rheumatoid arthritis, unspecified; J10.81 Influenza due to other identified influenza virus with encephalopathy; F03.A0 Unspecified dementia, mild, without behavioral disturbance, psychotic disturbance, mood disturbance, and anxiety; I25.5 Ischemic cardiomyopathy; E11.22 Type 2 diabetes mellitus with diabetic chronic kidney disease; E86.0 Dehydration; I48.91 Unspecified atrial fibrillation; N18.9 Chronic kidney disease, unspecified; R13.10 Dysphagia, unspecified; R65.20 Severe sepsis without septic shock; M19.09 Primary osteoarthritis, other specified site; Z74.01 Bed confinement status; Z86.73 Personal history of transient ischemic attack (TIA), and cerebral infarction without residual deficits; Z95.1 Presence of aortocoronary bypass graft; Z86.79 Personal history of other diseases of the circulatory system
CPT/HCPCS: 36415; 36600; 70450; 71045; 76775; 80048; 80053; 80162; 80320; 81001; 82306; 82570; 82805; 82962; 83605; 83735; 83880; 83930; 83970; 84100; 84156; 84300; 84443; 84484; 85007; 85025; 85027; 85610; 85730; 87040; 87070; 87077; 87081; 87086; 87186; 87205; 87426; 87804; 92507; 92610; 92950; 92960; 93005; 93306; 94640; 94667; 94668; 96365; 97110; 97116; 97163; 97530; C9113; G0378; J0171; J1450; J2185; J2543; P9047